=== PATIENT | male | born 1990 | race Caucasian/White ===

== ENCOUNTER 2024-10-24 01:15 | Day surgery (SDC) | payer OTHER, SELFPAY ==
[2024-10-23 18:52] LABS: % Basophils 0.5 % (0-2); % Eosinophils 0.8 % (0-6); % Immature Granulocytes 0.2 % (0-0.5); % Lymphocytes 17.9 % (20.5-51.1); % Monocytes 9.7 % (1.7-9.3); % Neutrophils 70.9 % (42.2-75.2); Absolute Basophils 0.1 10^3/uL (0-0.2); Absolute Eosinophils 0.1 10^3/uL (0-0.7); Absolute Lymphocytes 2.3 10^3/uL (1.2-3.4); Absolute Monocytes 1.3 10^3/uL (0.1-0.6); Absolute Neutrophils 9.2 10^3/uL (1.4-6.5); Hematocrit 40.3 % (39.0-52.0); Hemoglobin 14.3 g/dL (13.0-18.0); Mean Corp Hgb Conc. 35.5 g/dL (33.0-37.0); Mean Corpuscular Hgb 32.2 pg (27.0-31.0); Mean Corpuscular Volume 90.8 fL (80.0-94.0); Mean Platelet Volume 9.1 fL (7.4-10.4); Nucleated Red Blood Cells % 0 % (-); Platelet Count 233 10^3/uL (130-400); Red Blood Cell Count 4.44 10^6/uL (4.70-6.10); Red Cell Dist. Width 11.9 % (11.5-14.5)
[2024-10-23 19:06] LABS: ALT (SGPT) 21 U/L (0-50); AST (SGOT) 34 U/L (17-59); Albumin 5.2 g/dl (3.5-5.0); Alkaline Phosphatase 45 U/L (38-126); Blood Urea Nitrogen 13 mg/dl (9-20); Calcium 9.7 mg/dl (8.4-10.2); Carbon Dioxide 30 mmol/L (22-30); Chloride 101 mmol/L (98-107); Glucose 96 mg/dl (70-99); Potassium 4.1 mmol/L (3.5-5.1); Sodium 141 mmol/L (135-145); Total Bilirubin 1.9 mg/dl (0.2-1.3); Total Protein 7.7 g/dl (6.3-8.2); eGFR > 60.00
[2024-10-23 19:07] LABS: Lipase 138 U/L (23-300)
[2024-10-23 20:37] VITALS: BMI 27.3
[2024-10-23 20:43] VITALS: BP 134/85
--- NOTE | 2024-10-23 20:53 | ED.GENMED ---
History of Present Illness
General
Chief Complaint: Abdominal Pain
Source: patient and spouse
Exam Limitations: none
Time Seen by Provider: 10/23/24 20:40
Nursing documentation reviewed up to this point in time: agreed with
History of Present Illness
History of Present Illness:
34-year-old male presents to the emergency department complaining right lower quadrant Kiran pain since last night. He has been less hungry today. He denies any vomiting or diarrhea.
Past History
Past History
ED Past Medical History: None
ED Past Surgical History: Other ([place] teeth, hernia repair)
Social History
Tobacco: Non-smoker
Alcohol: None
Drug: None
Personal:
Living: with family
Employment: Employed
Review of Systems
Review of Systems
Allergies reviewed?: Yes
All Other Systems: Not applicable
Constitutional: Reports no symptoms
EENT: Reports no symptoms
Respiratory: Reports no symptoms
Cardiac: Reports no symptoms
ABD/GI: Reports abdominal pain
: Reports no symptoms
Musculoskeletal: Reports no symptoms
Skin: Reports no symptoms
Neurological: Reports no symptoms
Endocrine: Reports no symptoms
Hematologic/Lymphatic: Reports no symptoms
Psychiatric: Reports no symptoms
Phy Exam
Physical Exam
Physical Exam:
Physical Exam
General: no apparent distress, not acutely ill
Neck: supple. no meningeal signs. normal posterior pharynx
Heart: s1/s2 regular rate and rhythm, no murmur. equal radial
pulses.
HEENT: Pupils equal round reactive to light, EOMI
Lungs: no acute respiratory distress. clear bilaterally
Abdomen: normal bowel sounds. Right lower quadrant tenderness. No CVAT
Neuro: alert and oriented. no focal neurological deficits cranial nerves II through XII intact
Skin: no rash
Psychiatric: well kept. interactive and cooperative
Extremities: no edema. no calf tenderness. negative homans. good distal pulses
Course
Orders/Labs/Results
Orders:
Orders
10/23/24 18:42
Complete Blood Count/With Diff Urgent
Comprehensive Metabolic Panel Urgent
Lipase Urgent
10/23/24 20:53
CT Abd/pel W Iv And Oral Contr Urgent
Comment:
Reason For Exam: RLQ abd pain
IV Insert/Care/Rem.- Treatment PRN
Iohexol [Omnipaque] See Protocol PO NOW STA
10/23/24 23:00
Flush (0.9% Sodium Chloride) [Flush (Nss)] See Dose Instructions IV PER PROTOCOL
10/23/24 23:26
Piperacillin/Tazo 4.5 Gram [Zosyn] 4.5 gram in 100 ml IV NOW
Abnormal Lab Results
10/23/24
18:42
WBC 13.0 H 10^3/uL
(4.8-10.8)
RBC 4.44 L 10^6/uL
(4.70-6.10)
MCH 32.2 H pg
(27.0-31.0)
Absolute Neuts (auto) 9.2 H 10^3/uL
(1.4-6.5)
Absolute Monos (auto) 1.3 H 10^3/uL
(0.1-0.6)
Lymphocytes % 17.9 L %
(20.5-51.1)
Monocytes % 9.7 H %
(1.7-9.3)
Total Bilirubin 1.9 H mg/dl
(0.2-1.3)
Albumin 5.2 H g/dl
(3.5-5.0)
10/23/24 18:42
10/23/24 18:42
Vital Signs
Initial and Last Documented VS:
Initial Vital Signs
BP
134/85
10/23/24 20:43
Last Documented Vital Signs
Temp BP Pulse Ox
97.8 F 131/67 94
10/23/24 23:34 10/23/24 23:34 10/23/24 23:34
MDM/Problems Addressed
Differential Diagnosis Includes:
Appendicitis, gastroenteritis
MDM/Problems Addressed:
34-year-old male with appendicitis, no rupture. Discussed with Dr. Gaviria, who will take 2 OR in a.m. Zosyn given. IV fluids given.
*Radiology
Radiology exam reviewed: preliminary read by ED provider (CT abdomen pelvis shows acute appendicitis) and radiology read reviewed (CT abdomen pelvis shows acute appendicitis)
*Pulse Oximetry
Patient hypoxic: no
*Strip Mine Supervisor Interpretation
Rate: Strip Mine Supervisor- N/A
*Critical Care Note
Total Time (30-74mins, 75-104mins- exclusive of procedures): Not Applicable
Patient Management
Social determinants of health affecting care: Living situation and Strong social support
Discussion with other providers: [employer]ard Machine Operator (general surgery Dr. Gaviria)
Escalation/DeEscalation of care consider admission/obs:
admit for OR in am indicated
ED Attending Note
-
Portions of this chart may have been created with voice recognition software.� Occasional wrong word or��sound alike� substitutions may have occurred due to the inherent limitations of voice recognition software.
Discharge Plan
Departure
Patient Disposition: Admit
Date of Disposition: 10/23/24
Time of Disposition: 23:30
Admit to: Med/Surg
Presentation/result/management discussed w/ accepting MD/DO: Gen surgeon Dr. Gaviria
Patient with high blood pressure during this ER visit?: Yes
Condition: Good
Discharge Problem:
Acute appendicitis
Referrals:
Talon Chase I. DO [Family Provider] -
Interventions
Interventions:
*Risk Screen - Suicide Last Done: 10/23/24 18:35
*General Assessment Last Done: 10/23/24 18:35
*Neglect/Abuse Screening Last Done: 10/23/24 18:35
*ED- Fall Risk Assessment Last Done: 10/23/24 21:37
*ED COVID-19 Vaccine History Last Done: 10/23/24 18:35
LA-Cacezn-Zirebwejkq Assessment Last Done: 10/23/24 20:35
Discharge Date and Time
Print Language: SYRIAN
[2024-10-23 21:00] VITALS: BP 127/66
[2024-10-23] MEDS: OMNIPAQUE 960 ML PO (21:05)
[2024-10-23 23:34] VITALS: BP 131/67
[2024-10-23] MEDS: ZOSYN 100 IV (23:35)
[2024-10-24] VITALS (10 sets, daily range): BP systolic 113–148; BP diastolic 56–99; BMI 26.7
--- NOTE | 2024-10-24 00:19 | HPS.HSE ---
Addendum entered and electronically signed by Dilip Gaviria MD 10/24/24 09:17:
I saw and examined the patient.
The [employer]ip[employer] Placing Supervisor's note was reviewed and I agree with the note.
Comment: Acute appendicitis. Feels improved this am but RLQ pain/ttp remains. WBC normalized. CT reviewed, c/w uncomplicated acute appendicitis, retrocecal position. OCTOR for lap appy, informed consent obtained. Cont IV zosyn. Lovenox added
Original Note:
Family Physician
-
Family Physician: Talon Chase
Chief Complaint
-
abd pain
History of Present Illness
34 yo male with no past med hx presents to ED for complaints of abd pain since last night after dinner. He at a pizza and initially thought it was just gas pains but pain remained constant throughout the day. Worse with movement. Denies
nausea/vomiting. Denies fever chills. Normal BM. Denies urine complaints
ED treatments:
zosyn started
WBC 13.0
Medical History
Past Medical History
Past Medical History: Reports None
Past Surgical History: Reports Tonsilectomy and Other ([place] teeth, hernia repair as child, pilonidal cyst)
Social History
Tobacco: Non-smoker
Alcohol: None
Drug: None
Personal:
Living: Alone
Employment: Employed
Family History
Family History: Not pertinent
Allergies / Home Medications
Allergies reflects when Allergies were last updated in [facility].
Home Medications with original date entered in [facility]
Allergy/Medication List:
Allergies
Allergy/AdvReac Type Severity Reaction Status Date / Time
No Known Allergies Allergy Unverified 10/23/24 18:34
Does not take precribed medications
Takes mostly vitamin including: fish oil, ashwaganda, co q 10, MVI, zinc magnesium (dose unknown)
Review of Systems
-
History Source: Patient
A 12 point ROS was completed and negative except as noted: Yes
Abdomen/GI: Reports Abdominal Pain (initially diffuse then more localized to RQ); Denies Nausea or Vomiting
Physical Exam
Vital Signs
Vital Signs
Temp BP Pulse Ox
97.8 F 131/67 94
10/23/24 23:34 10/23/24 23:34 10/23/24 23:34
Physical Exam
General: Well Developed, Well Nourished, No Apparent Distress, Comfortable and Pain (minimal at rest)
HEENT: NormoCephalic, Anicteric, Moist mucous membranes, Atraumatic and Good Dentition
Respiratory: Clear, Non Labored Respirations and Accessory Resp Muscle Use
Cardiac: S1/S2 and Bradycardia (HR 46)
GI: Tender (RLQ) and Other (hypoactive BS); No Non Tender or Normal Bowel Sounds
Rectal: Deferred by Provider
Genito-urinary: Deferred by me
Musculoskeletal: No Clubbing and No Cyanosis
Skin: Warm and Dry
Neuro: Awake, Alert, Oriented and AO x 3
Hematologic/Lymphatic: No Lymphadenopathy
Psych: Calm and Intact Judgment/Insight
Laboratory Results
-
10/23/24 18:42
10/23/24 18:42
Laboratory Results
Total Bilirubin 1.9 mg/dl (0.2-1.3) H 10/23/24 18:42
AST 34 U/L (17-59) 10/23/24 18:42
ALT 21 U/L (0-50) 10/23/24 18:42
Alkaline Phosphatase 45 U/L (38-126) 10/23/24 18:42
Lipase 138 U/L (23-300) 10/23/24 18:42
Data Reviewed
-
CT Scan: Report Reviewed by me and Discussed with Physician
Lab Data: Discussed with Physician
Impression/Plan
-
IMPRESSION:
acute appendicitis
PLAN:
Admit to service of Dr Gaviria
med surg obs
#acute appendicitis
-Npo x meds
-cont zosyn iv q6
-pain control: toradol, tylenol, morphine prn
-WBC 13.0 repeat in am
-IVF
dvt prophylaxis: scd
full code
[2024-10-24] MEDS: NSS 1000 IV (02:04)
--- NOTE | 2024-10-24 04:55 | PTCARENOTE ---
Pt. admitted to room 2251 (med surg overflow) from ED AAOx3; VSS, pt. ambulatory and independent. States right lower quadrant pain comes with movement only, level 2 out of 10. Denies need for pain medication at this time, denies any nausea.
Oriented to room and plan of care, understanding verbalized. Currently resting quietly.
[2024-10-24 05:56] LABS: % Basophils 0.6 % (0-2); % Eosinophils 2.6 % (0-6); % Immature Granulocytes 0.3 % (0-0.5); % Monocytes 11.4 % (1.7-9.3); % Neutrophils 57.1 % (42.2-75.2); Absolute Basophils 0.1 10^3/uL (0-0.2); Absolute Eosinophils 0.2 10^3/uL (0-0.7); Absolute Lymphocytes 2.5 10^3/uL (1.2-3.4); Absolute Neutrophils 5.2 10^3/uL (1.4-6.5); Hematocrit 38.5 % (39.0-52.0); Hemoglobin 13.6 g/dL (13.0-18.0); Mean Corp Hgb Conc. 35.3 g/dL (33.0-37.0); Mean Corpuscular Hgb 32.3 pg (27.0-31.0); Mean Corpuscular Volume 91.4 fL (80.0-94.0); Mean Platelet Volume 9.3 fL (7.4-10.4); Nucleated Red Blood Cells % 0 % (-); Platelet Count 209 10^3/uL (130-400); Red Blood Cell Count 4.21 10^6/uL (4.70-6.10); Red Cell Dist. Width 12.1 % (11.5-14.5); White Blood Cell Count 9.1 10^3/uL (4.8-10.8)
[2024-10-24] MEDS: ZOSYN 50 IV (05:58)
[2024-10-24 06:19] LABS: Blood Urea Nitrogen 11 mg/dl (9-20); Calcium 9.4 mg/dl (8.4-10.2); Carbon Dioxide 27 mmol/L (22-30); Chloride 103 mmol/L (98-107); Estimated Creatinine Clearance 117 ml/min; Glucose 90 mg/dl (70-99); Potassium 4.2 mmol/L (3.5-5.1); Sodium 139 mmol/L (135-145); eGFR > 60.00
[2024-10-24] MEDS: LOVENOX 30 MG SC (10:05)
--- NOTE | 2024-10-24 10:55 | CM ---
CM following for DC planning needs.
Met w/ patient at bedside to complete initial assessment. Pt. resides w/ sig. other in a private home. He is functionally indep. w/ ADLs, mobility without the use of AD.
Pt. uses [facility] in [place] for RX needs; has PP.
Provided OBS letter, reviewed OBS. Signed copy placed in chart.
There are no antic. DC needs.
Plan is for home, no needs.
--- NOTE | 2024-10-24 11:15 | PTCARENOTE ---
Discussed plan for laproscopic appendectomy. Pt NPO since midnight. CHG wipes nipples to groin area. Pt transported to OR, in bed.
--- NOTE | 2024-10-24 12:40 | OR.RPT ---
Operative Report
Operative Report
Primary Surgeon: Khadra
Assisting Surgeon: Yessicaj PGY1
Pre-op Diagnosis: Acute appendicitis
Post-op Diagnosis: Same
Procedure Performed: Laparoscopic appendectomy
Anesthesia Type: GETA
Specimen / Cultures: Appendix
Estimated Blood Loss: 5cc
Complications: None immediate
Operative Findings: Inflamed retrocecal appendix, mostly inflamed at distal segment, densely adherent to cecum, lightly adherent to pelvic sidewall, scant clear pelvic fluid
Date of Surgery: 10/24/24
Indications: This 34M developed right lower quadrant abdominal pain and on workup was found to have acute appendicitis. Laparoscopic appendectomy was elected.
Description of procedure: The patient was placed on the operating table in the supine position. General anesthesia was induced. A time-out was completed verifying correct patient, procedure, site, positioning, and special equipment prior to
beginning this procedure. An orogastric tube was placed. The abdomen was prepped and draped in the usual sterile fashion. A stab incision was made in left upper quadrant and the Veress needle was inserted. Proper position was confirmed by aspiration
and saline meniscus test. The abdomen was insufflated with carbon dioxide to a pressure of 12 mmHg. The patient tolerated insufflation well.
A 5mm optical trocar was then inserted at the left lower quadrant. The laparoscope was inserted and the abdomen inspected. No injuries from initial trocar placement or Veress needle insertion were noted. Additional trocars were then inserted in the
following locations: a 12-mm trocar at the umbilicus and a 5-mm trocar midline in the suprapubic space. The abdomen was inspected and no abnormalities were found. The table was placed in the Trendelenburg position with the right side up. The tip of
the appendix was densely adherent to the cecum.. The appendix-cecum complex was gently bluntly swept off the lateral sidewall. A window was created in the mesentery of the appendix with the maryland dissector. Following this, a laparoscopic linear
cutting stapler with a 45mm saucedo load was deployed and used to transect the appendix at its base. The base of the appendix was grasped and elevated to expose the blood supply which was controlled with the voyant device. Ultimately the entire appendix
was liberated intact from the cecum with blunt dissection and the voyant device. The appendix was placed in an endoscopic retrieval bag, removed through the umbilical port, and passed off the table as a specimen.
We then turned our attention to the staple line, which was noted to be hemostatic. Scant clear fluid in the pelvis was noted. The umbilical trocar site was closed at the fascial level laparoscopically with 2-0 PDS under direct vision. Secondary
trocars were removed under direct vision and noted to be hemostatic. The laparoscope was withdrawn and the abdomen was allowed to collapse. The skin was closed with subcuticular sutures of 4-0 monocryl and topical skin adhesive. The orogastric tube
was removed.
The patient tolerated the procedure well and was taken to the postanesthesia care unit in stable condition.
[2024-10-24] MEDS: ZOSYN IV (12:48)
[2024-10-24] MEDS: DILAUDID 0.25 MG IV (13:04)
--- NOTE | 2024-10-24 13:42 | PTCARENOTE ---
Received pt from PACU, post appendectomy. Pt AAO x3, VSS. Pt verbalized 'some abdominal discomfort with movement'. Pt given dilaudid at 1300. Right abdominal stab wounds x 4 noted w/ local erythema and surgical glue noted. Will monitor.
[2024-10-24] MEDS: NSS IV (14:57)
[2024-10-24] MEDS: TORADOL 10 MG IV (15:15)
--- NOTE | 2024-10-24 15:17 | W.DS.TRANS ---
DC Summary - Notch Machine Operator
-
Discharge Instructions:
Discharge Diagnosis/Procedures Laparoscopic appendectomy
Diet No restrictions
Activity No strenuous activity
Driving Restrictions No driving for 24 hours
Bathing Restrictions OK to Shower
Wound Care Allow skin glue to flake off on its own
Instructions: Appendectomy - Discharge instructions
Stand-Alone Forms:
Changes to Home Medications: No
Discharge Medications:
DC Medications w/original date entered in [facility]
tramadol 50 mg tablet 50 - 100 mg (1 - 2 x 50 mg) PO Q6H PRN Pain #20 tabs 10/24/24
Home Medication Changes
Pending Results: No
== END 2024-10-24 16:16 | disposition home or self-care (01) ==
LOC: SDS 01:15
PROVIDERS: Emergency Medicine; Nurse Practitioner Family; ATTENDING PHYSICIAN Surgery; FAMILY PHYSICIAN Internal Medicine
DX: K35.80 Unspecified acute appendicitis (principal)
CPT/HCPCS: 44970; 88304; 74177; 80048; 80053; 83690; 85025; 99285; C1776; Q9967